=== PATIENT | male | born 1985 | race Caucasian/White ===

== ENCOUNTER 2018-05-21 17:56 | Emergency (ER) | payer MEDICAID ==
[~2018-05-21] VITALS: Ht 175.3 cm; Wt 61.2 kg
--- NOTE | 2018-05-21 18:00 | NUR ---
PT AMBULATES TO BED 5
[2018-05-21 18:02] VITALS: BP 119/79
--- NOTE | 2018-05-21 18:04 | NUR ---
PT C/O HEADACHE AND L EYE PAIN AND REDNESS X 1 DAY, EYE IS RED AND HAS CLEAR DISCHARGE. NO OTHER COMPLAINTS. HX: NONE -- NO MEDS
--- NOTE | 2018-05-21 18:10 | NUR ---
33YO M PT C/O HEADACHE AND L EYE PAIN AND REDNESS X 1 DAY, EYE IS RED AND HAS CLEAR DISCHARGE. NO OTHER COMPLAINTS. HX: NONE -- NO MEDS
[2018-05-21 20:00] VITALS: BP 119/79
== END 2018-05-21 20:00 | disposition home or self-care (01) ==
LOC: MED 17:56
DX: B30.9 Viral conjunctivitis, unspecified (principal); F12.10 Cannabis abuse, uncomplicated
CPT/HCPCS: 99282